=== PATIENT | male | born 1965 | race Caucasian/White ===

== ENCOUNTER 2019-06-03 20:37 | Inpatient (IN) | payer OTHER ==
[2019-06-03] MEDS ORDERED: BISACODYL 10 MG SUPP PR (23:00)
[2019-06-03] MEDS ORDERED: MAGNESIUM HYDROXIDE 30ML CUP PO (23:00)
[2019-06-04 00:16] LABS: ADD UMIC NO; UR ASCORBIC ACID NEGATIVE (NEGATIVE); UR BILIRUBIN (Dip) NEGATIVE (NEGATIVE); UR BLOOD (Dip) NEGATIVE (NEGATIVE); UR CLARITY CLEAR (CLEAR); UR COLOR STRAW (YELLOW); UR GLUCOSE (Dip) NEGATIVE (NEGATIVE); UR KETONES (Dip) NEGATIVE (NEGATIVE); UR LEUKOCYTE ESTERASE (Dip) NEGATIVE Leu/ul (NEGATIVE); UR NITRITE (Dip) NEGATIVE (NEGATIVE); UR SPECIFIC GRAVITY (Dip) 1.003 (1.003-1.030); UR TOTAL PROTEIN (Dip) NEGATIVE (NEGATIVE); UR UROBILINOGEN (Dip) NEGATIVE (NEGATIVE)
[2019-06-04] MEDS ORDERED: ONDANSETRON 4 MG INJ IV (03:30)
[2019-06-04] MEDS ORDERED: NITROGLYCERIN (SL) 0.4 MG TAB SL (03:30)
[2019-06-04 07:26] LABS: ADD MAN DIFF? NO
[2019-06-04 07:35] LABS: BASOPHIL # 0.1 10^3/ul (0.0-0.1); BASOPHILS % 1.2 % (0.0-2.0); EOSINOPHILS # 0.1 10^3/ul (0.0-0.5); EOSINOPHILS % 1.6 % (0.0-7.0); HEMATOCRIT 43.5 % (42.0-52.0); LYMPHOCYTES # 1.4 10^3/ul (0.8-2.9); MEAN CORPUSCULAR HEMOGLOBIN 32.7 pg (29.0-33.0); MEAN CORPUSCULAR HGB CONC 34.5 g/dl (32.0-37.0); MEAN CORPUSCULAR VOLUME 94.8 fl (82.0-101.0); MEAN PLATELET VOLUME 10.7 fl (7.4-10.4); MONOCYTE # 0.8 10^3/ul (0.3-0.9); MONOCYTES % 10.6 % (0.0-11.0); NEUTROPHIL # 5.2 10^3/ul (1.6-7.5); NEUTROPHILS % 68.2 % (39.0-77.0); PLATELET COUNT 246 10^3/UL (140-415); RED BLOOD COUNT 4.59 10^6/ul (4.70-6.10); RED CELL DISTRIBUTION WIDTH 11.6 % (11.5-14.5)
[2019-06-04 07:35] LABS: WHITE BLOOD COUNT 7.6 10^3/ul (4.8-10.8)
[2019-06-04 08:06] LABS: ALANINE AMINOTRANSFERASE 68 IU/L (13-69); ALBUMIN 3.9 g/dl (3.3-4.9); ALBUMIN/GLOBULIN RATIO 1.85; ALKALINE PHOSPHATASE 88 IU/L (42-121); ANION GAP 8 (5-13); ASPARTATE AMINO TRANSFERASE 66 IU/L (15-46); BILIRUBIN,INDIRECT 1.2 mg/dl (0-1.1); BILIRUBIN,TOTAL 1.2 mg/dl (0.2-1.3); BLOOD UREA NITROGEN 17 mg/dl (7-20); CALCIUM 9.5 mg/dl (8.4-10.2); CARBON DIOXIDE 29 mmol/L (21-31); CHLORIDE 100 mmol/L (97-110); CREATININE 0.87 mg/dl (0.61-1.24); Estimated GFR > 60 mL/min (>60); GLUCOSE 93 mg/dl (70-220); POTASSIUM 4.2 mmol/L (3.5-5.1); SODIUM 137 mmol/L (135-144)
[2019-06-04] MEDS: ATORVASTATIN 80 MG TAB PO (08:07)
[2019-06-04] MEDS: AL HYDROX/MG HYDROX/SIMETH 30 ML CUP PO ×4 (08:07→21:27)
[2019-06-04] MEDS: HYDROCODONE/APAP (5/325) TAB PO (08:08)
[2019-06-04] MEDS: ASPIRIN (EC) 81 MG TAB PO (08:08)
[2019-06-04] MEDS: FLUOXETINE 20 MG CAP PO (08:08)
[2019-06-04] MEDS: DOCUSATE SODIUM 100 MG CAP PO ×2 (08:08→21:27)
[2019-06-04] MEDS: LOSARTAN 50 MG TAB PO (08:11)
[2019-06-04] MEDS: NICOTINE (14 MG/24 HR) PATCH TRANSDERM (08:12)
[2019-06-04] MEDS: POLYETHYLENE GLYCOL 17 GM PACKET PO (08:12)
[2019-06-04] MEDS: AMLODIPINE 5 MG TAB PO (08:13)
[2019-06-04] MEDS: FAMOTIDINE 20 MG TAB PO (21:27)
[2019-06-04] MEDS: SENNA TAB PO (21:28)
[2019-06-05] MEDS: AL HYDROX/MG HYDROX/SIMETH 30 ML CUP PO ×4 (07:35→20:24)
[2019-06-05] MEDS: FLUOXETINE 20 MG CAP PO (08:19)
[2019-06-05] MEDS: FAMOTIDINE 20 MG TAB PO ×2 (08:19→20:24)
[2019-06-05] MEDS: DOCUSATE SODIUM 100 MG CAP PO ×2 (08:20→20:26)
[2019-06-05] MEDS: ATORVASTATIN 80 MG TAB PO (08:20)
[2019-06-05] MEDS: LOSARTAN 50 MG TAB PO (08:20)
[2019-06-05] MEDS: ASPIRIN (EC) 81 MG TAB PO (08:20)
[2019-06-05] MEDS: POLYETHYLENE GLYCOL 17 GM PACKET PO (08:21)
[2019-06-05] MEDS: AMLODIPINE 5 MG TAB PO (08:21)
[2019-06-05] MEDS: NICOTINE (14 MG/24 HR) PATCH TRANSDERM (08:23)
[2019-06-05] MEDS: LACTULOSE 30ML CUP PO (08:23)
[2019-06-05] MEDS: SENNA TAB PO (20:26)
[2019-06-06] MEDS: POLYETHYLENE GLYCOL 17 GM PACKET PO (09:09)
[2019-06-06] MEDS: AL HYDROX/MG HYDROX/SIMETH 30 ML CUP PO ×4 (09:09→21:13)
[2019-06-06] MEDS: AMLODIPINE 5 MG TAB PO (09:10)
[2019-06-06] MEDS: FAMOTIDINE 20 MG TAB PO ×2 (09:10→21:13)
[2019-06-06] MEDS: FLUOXETINE 20 MG CAP PO (09:10)
[2019-06-06] MEDS: LOSARTAN 50 MG TAB PO (09:10)
[2019-06-06] MEDS: ASPIRIN (EC) 81 MG TAB PO (09:10)
[2019-06-06] MEDS: DOCUSATE SODIUM 100 MG CAP PO ×2 (09:11→21:00)
[2019-06-06] MEDS: ATORVASTATIN 80 MG TAB PO (09:11)
[2019-06-06] MEDS: NICOTINE (14 MG/24 HR) PATCH TRANSDERM (09:12)
[2019-06-06] MEDS: SENNA TAB PO (21:00)
[2019-06-06] MEDS: CIPROFLOXACIN 500 MG TAB PO (23:53)
[2019-06-07] MEDS: CIPROFLOXACIN 500 MG TAB PO (06:16)
[2019-06-07] MEDS: AL HYDROX/MG HYDROX/SIMETH 30 ML CUP PO ×4 (08:04→20:09)
[2019-06-07] MEDS: LOSARTAN 50 MG TAB PO (08:07)
[2019-06-07] MEDS: AMLODIPINE 5 MG TAB PO (08:08)
[2019-06-07] MEDS: DOCUSATE SODIUM 100 MG CAP PO ×2 (08:10→20:09)
[2019-06-07] MEDS: ASPIRIN (EC) 81 MG TAB PO (08:16)
[2019-06-07] MEDS: ATORVASTATIN 80 MG TAB PO (08:16)
[2019-06-07] MEDS: FAMOTIDINE 20 MG TAB PO ×2 (08:16→20:09)
[2019-06-07] MEDS: FLUOXETINE 20 MG CAP PO (08:16)
[2019-06-07] MEDS: NICOTINE (14 MG/24 HR) PATCH TRANSDERM (08:17)
[2019-06-07] MEDS ORDERED: POLYETHYLENE GLYCOL 17 GM PACKET PO (09:00)
[2019-06-07] MEDS: ACETAMINOPHEN 325 MG TAB PO (09:33)
[2019-06-07] MEDS ORDERED: PIPER-TAZO 3.375 GM IV (PMX) 100 ML IVPB (12:30)
[2019-06-07 12:34] LABS: LACTIC ACID 1.4 mmol/L (0.5-2.0)
[2019-06-07] MEDS: TOLTERODINE (SR) 4 MG CAP PO (12:51)
[2019-06-07] MEDS: CEFTRIAXONE 1 GM/NS 50 ML IVPB (13:06)
[2019-06-07 16:05] LABS: ADD MAN DIFF? NO
[2019-06-07 16:08] LABS: WHITE BLOOD COUNT 15.2 10^3/ul (4.8-10.8)
[2019-06-07 16:09] LABS: BASOPHIL # 0.1 10^3/ul (0.0-0.1); BASOPHILS % 0.5 % (0.0-2.0); EOSINOPHILS % 0.1 % (0.0-7.0); HEMATOCRIT 40.3 % (42.0-52.0); LYMPHOCYTES # 0.8 10^3/ul (0.8-2.9); LYMPHOCYTES % 5.3 % (15.0-51.0); MEAN CORPUSCULAR HEMOGLOBIN 32.5 pg (29.0-33.0); MEAN CORPUSCULAR HGB CONC 34.7 g/dl (32.0-37.0); MEAN CORPUSCULAR VOLUME 93.5 fl (82.0-101.0); MEAN PLATELET VOLUME 11.1 fl (7.4-10.4); MONOCYTE # 0.9 10^3/ul (0.3-0.9); NEUTROPHIL # 13.4 10^3/ul (1.6-7.5); NEUTROPHILS % 87.6 % (39.0-77.0); PLATELET COUNT 219 10^3/UL (140-415); RED BLOOD COUNT 4.31 10^6/ul (4.70-6.10); RED CELL DISTRIBUTION WIDTH 11.5 % (11.5-14.5)
[2019-06-07] MEDS: SENNA TAB PO (20:09)
[2019-06-08 06:29] LABS: ADD MAN DIFF? NO
[2019-06-08 06:33] LABS: BASOPHIL # 0.1 10^3/ul (0.0-0.1); BASOPHILS % 0.7 % (0.0-2.0); EOSINOPHILS # 0.1 10^3/ul (0.0-0.5); EOSINOPHILS % 0.8 % (0.0-7.0); HEMATOCRIT 39.8 % (42.0-52.0); HEMOGLOBIN 13.7 g/dl (14.0-18.0); LYMPHOCYTES # 0.8 10^3/ul (0.8-2.9); LYMPHOCYTES % 7.1 % (15.0-51.0); MEAN CORPUSCULAR HEMOGLOBIN 32.6 pg (29.0-33.0); MEAN CORPUSCULAR HGB CONC 34.4 g/dl (32.0-37.0); MEAN CORPUSCULAR VOLUME 94.8 fl (82.0-101.0); MEAN PLATELET VOLUME 10.3 fl (7.4-10.4); MONOCYTE # 0.8 10^3/ul (0.3-0.9); MONOCYTES % 6.7 % (0.0-11.0); NEUTROPHIL # 9.9 10^3/ul (1.6-7.5); NEUTROPHILS % 84.2 % (39.0-77.0); PLATELET COUNT 203 10^3/UL (140-415); RED CELL DISTRIBUTION WIDTH 11.5 % (11.5-14.5)
[2019-06-08 06:33] LABS: WHITE BLOOD COUNT 11.8 10^3/ul (4.8-10.8)
[2019-06-08 07:01] LABS: ALANINE AMINOTRANSFERASE 393 IU/L (13-69); ALBUMIN 3.3 g/dl (3.3-4.9); ALBUMIN/GLOBULIN RATIO 1.17; ALKALINE PHOSPHATASE 146 IU/L (42-121); ANION GAP 7 (5-13); ASPARTATE AMINO TRANSFERASE 228 IU/L (15-46); BLOOD UREA NITROGEN 11 mg/dl (7-20); CALCIUM 9.1 mg/dl (8.4-10.2); CARBON DIOXIDE 32 mmol/L (21-31); CHLORIDE 97 mmol/L (97-110); CREATININE 0.78 mg/dl (0.61-1.24); Estimated GFR > 60 mL/min (>60); GLUCOSE 127 mg/dl (70-220); POTASSIUM 3.9 mmol/L (3.5-5.1); SODIUM 136 mmol/L (135-144); TOTAL PROTEIN 6.1 g/dl (6.1-8.1)
[2019-06-08] MEDS: AL HYDROX/MG HYDROX/SIMETH 30 ML CUP PO ×4 (08:22→21:02)
[2019-06-08] MEDS: DOCUSATE SODIUM 100 MG CAP PO ×2 (09:00→21:00)
[2019-06-08] MEDS: LOSARTAN 50 MG TAB PO (09:02)
[2019-06-08] MEDS: ASPIRIN (EC) 81 MG TAB PO (09:02)
[2019-06-08] MEDS: TOLTERODINE (SR) 4 MG CAP PO (09:02)
[2019-06-08] MEDS: AMLODIPINE 5 MG TAB PO (09:02)
[2019-06-08] MEDS: ATORVASTATIN 80 MG TAB PO (09:03)
[2019-06-08] MEDS: FLUOXETINE 20 MG CAP PO (09:03)
[2019-06-08] MEDS: FAMOTIDINE 20 MG TAB PO ×2 (09:03→21:02)
[2019-06-08] MEDS: NICOTINE (14 MG/24 HR) PATCH TRANSDERM (09:04)
[2019-06-08] MEDS: CEFTRIAXONE 1 GM/NS 50 ML IVPB (12:51)
[2019-06-08] MEDS: SENNA TAB PO (21:00)
[2019-06-09] MEDS: AL HYDROX/MG HYDROX/SIMETH 30 ML CUP PO ×4 (06:48→21:00)
[2019-06-09 07:32] LABS: ADD MAN DIFF? NO
[2019-06-09 07:48] LABS: WHITE BLOOD COUNT 9.5 10^3/ul (4.8-10.8)
[2019-06-09 07:48] LABS: BASOPHIL # 0.1 10^3/ul (0.0-0.1); BASOPHILS % 0.7 % (0.0-2.0); EOSINOPHILS # 0.1 10^3/ul (0.0-0.5); EOSINOPHILS % 1.3 % (0.0-7.0); HEMATOCRIT 40.9 % (42.0-52.0); HEMOGLOBIN 13.7 g/dl (14.0-18.0); LYMPHOCYTES # 1.1 10^3/ul (0.8-2.9); LYMPHOCYTES % 11.1 % (15.0-51.0); MEAN CORPUSCULAR HEMOGLOBIN 31.6 pg (29.0-33.0); MEAN CORPUSCULAR HGB CONC 33.5 g/dl (32.0-37.0); MEAN CORPUSCULAR VOLUME 94.2 fl (82.0-101.0); MEAN PLATELET VOLUME 10.8 fl (7.4-10.4); MONOCYTES % 10.2 % (0.0-11.0); NEUTROPHIL # 7.2 10^3/ul (1.6-7.5); NEUTROPHILS % 76.3 % (39.0-77.0); PLATELET COUNT 234 10^3/UL (140-415); RED BLOOD COUNT 4.34 10^6/ul (4.70-6.10); RED CELL DISTRIBUTION WIDTH 11.6 % (11.5-14.5)
[2019-06-09 08:05] LABS: ANION GAP 8 (5-13); BLOOD UREA NITROGEN 11 mg/dl (7-20); CALCIUM 9.3 mg/dl (8.4-10.2); CARBON DIOXIDE 28 mmol/L (21-31); CHLORIDE 100 mmol/L (97-110); CREATININE 0.76 mg/dl (0.61-1.24); Estimated GFR > 60 mL/min (>60); GLUCOSE 91 mg/dl (70-220); POTASSIUM 3.8 mmol/L (3.5-5.1); SODIUM 136 mmol/L (135-144)
[2019-06-09] MEDS: FLUOXETINE 20 MG CAP PO (08:40)
[2019-06-09] MEDS: NICOTINE (14 MG/24 HR) PATCH TRANSDERM (08:40)
[2019-06-09] MEDS: TOLTERODINE (SR) 4 MG CAP PO (08:40)
[2019-06-09] MEDS: FAMOTIDINE 20 MG TAB PO ×2 (08:40→20:35)
[2019-06-09] MEDS: AMLODIPINE 5 MG TAB PO (08:41)
[2019-06-09] MEDS: ASPIRIN (EC) 81 MG TAB PO (08:41)
[2019-06-09] MEDS: LOSARTAN 50 MG TAB PO (08:41)
[2019-06-09] MEDS: DOCUSATE SODIUM 100 MG CAP PO ×2 (08:42→21:00)
[2019-06-09 09:06] LABS: PROSTATE SPECIFIC ANTIGEN 30.1 ng/ml (0.0-4.0)
[2019-06-09] MEDS: CEFTRIAXONE 1 GM/NS 50 ML IVPB (12:49)
[2019-06-09] MEDS: SENNA TAB PO (21:00)
[2019-06-10] MEDS: AL HYDROX/MG HYDROX/SIMETH 30 ML CUP PO ×4 (07:05→20:22)
[2019-06-10 08:06] LABS: ALANINE AMINOTRANSFERASE 173 IU/L (13-69); ALBUMIN 3.2 g/dl (3.3-4.9); ALKALINE PHOSPHATASE 118 IU/L (42-121); ASPARTATE AMINO TRANSFERASE 47 IU/L (15-46); BILIRUBIN,INDIRECT 0.6 mg/dl (0-1.1); BILIRUBIN,TOTAL 0.6 mg/dl (0.2-1.3); TOTAL PROTEIN 6.1 g/dl (6.1-8.1)
[2019-06-10] MEDS: DOCUSATE SODIUM 100 MG CAP PO ×2 (08:33→20:22)
[2019-06-10] MEDS: LOSARTAN 50 MG TAB PO (08:51)
[2019-06-10] MEDS: FLUOXETINE 20 MG CAP PO (08:51)
[2019-06-10] MEDS: TOLTERODINE (SR) 4 MG CAP PO (08:51)
[2019-06-10] MEDS: ASPIRIN (EC) 81 MG TAB PO (08:52)
[2019-06-10] MEDS: FAMOTIDINE 20 MG TAB PO ×2 (08:52→20:21)
[2019-06-10] MEDS: MULTIVITAMINS THERAPEUTIC TAB PO (08:52)
[2019-06-10] MEDS: AMLODIPINE 5 MG TAB PO (08:52)
[2019-06-10] MEDS: NICOTINE (14 MG/24 HR) PATCH TRANSDERM (08:52)
[2019-06-10] MEDS: CEFTRIAXONE 1 GM/NS 50 ML IVPB (12:33)
[2019-06-10] MEDS: SENNA TAB PO (20:22)
[2019-06-11 06:05] LABS: ALANINE AMINOTRANSFERASE 130 IU/L (13-69); ALBUMIN 3.7 g/dl (3.3-4.9); ALKALINE PHOSPHATASE 103 IU/L (42-121); ASPARTATE AMINO TRANSFERASE 36 IU/L (15-46); BILIRUBIN,INDIRECT 0.4 mg/dl (0-1.1); BILIRUBIN,TOTAL 0.4 mg/dl (0.2-1.3); TOTAL PROTEIN 6.4 g/dl (6.1-8.1)
[2019-06-11] MEDS: AL HYDROX/MG HYDROX/SIMETH 30 ML CUP PO ×4 (07:05→20:12)
[2019-06-11] MEDS: NICOTINE (14 MG/24 HR) PATCH TRANSDERM (08:46)
[2019-06-11] MEDS: MULTIVITAMINS THERAPEUTIC TAB PO (08:47)
[2019-06-11] MEDS: AMLODIPINE 5 MG TAB PO (08:47)
[2019-06-11] MEDS: ASPIRIN (EC) 81 MG TAB PO (08:47)
[2019-06-11] MEDS: FAMOTIDINE 20 MG TAB PO ×2 (08:47→20:03)
[2019-06-11] MEDS: FLUOXETINE 20 MG CAP PO (08:47)
[2019-06-11] MEDS: DOCUSATE SODIUM 100 MG CAP PO ×2 (08:48→20:12)
[2019-06-11] MEDS: LOSARTAN 50 MG TAB PO (08:48)
[2019-06-11] MEDS: CEFTRIAXONE 1 GM/NS 50 ML IVPB (12:36)
[2019-06-11] MEDS: ATORVASTATIN 10 MG TAB PO (20:03)
[2019-06-11] MEDS: SENNA TAB PO (20:12)
[2019-06-12] MEDS: AL HYDROX/MG HYDROX/SIMETH 30 ML CUP PO ×4 (05:56→20:36)
[2019-06-12] MEDS: NICOTINE (14 MG/24 HR) PATCH TRANSDERM (08:13)
[2019-06-12] MEDS: AMLODIPINE 5 MG TAB PO (08:13)
[2019-06-12] MEDS: MULTIVITAMINS THERAPEUTIC TAB PO (08:14)
[2019-06-12] MEDS: FLUOXETINE 20 MG CAP PO (08:14)
[2019-06-12] MEDS: FAMOTIDINE 20 MG TAB PO ×2 (08:14→20:34)
[2019-06-12] MEDS: ASPIRIN (EC) 81 MG TAB PO (08:14)
[2019-06-12] MEDS: DOCUSATE SODIUM 100 MG CAP PO ×2 (08:15→20:36)
[2019-06-12] MEDS: LOSARTAN 50 MG TAB PO (08:17)
[2019-06-12] MEDS: CEFTRIAXONE 1 GM/NS 50 ML IVPB (13:57)
[2019-06-12] MEDS: ATORVASTATIN 10 MG TAB PO (20:34)
[2019-06-12] MEDS: SENNA TAB PO (20:36)
[2019-06-13] MEDS: AL HYDROX/MG HYDROX/SIMETH 30 ML CUP PO ×4 (05:36→20:17)
[2019-06-13 07:43] LABS: ALANINE AMINOTRANSFERASE 101 IU/L (13-69); ALBUMIN 3.7 g/dl (3.3-4.9); ALBUMIN/GLOBULIN RATIO 1.48; ALKALINE PHOSPHATASE 90 IU/L (42-121); ANION GAP 7 (5-13); ASPARTATE AMINO TRANSFERASE 47 IU/L (15-46); BILIRUBIN,INDIRECT 0.6 mg/dl (0-1.1); BILIRUBIN,TOTAL 0.6 mg/dl (0.2-1.3); BLOOD UREA NITROGEN 10 mg/dl (7-20); CALCIUM 9.5 mg/dl (8.4-10.2); CARBON DIOXIDE 28 mmol/L (21-31); CHLORIDE 102 mmol/L (97-110); CREATININE 0.74 mg/dl (0.61-1.24); Estimated GFR > 60 mL/min (>60); GLUCOSE 98 mg/dl (70-220); SODIUM 137 mmol/L (135-144); TOTAL PROTEIN 6.2 g/dl (6.1-8.1)
[2019-06-13] MEDS: DOCUSATE SODIUM 100 MG CAP PO ×2 (08:35→20:17)
[2019-06-13] MEDS: MULTIVITAMINS THERAPEUTIC TAB PO (09:55)
[2019-06-13] MEDS: NICOTINE (14 MG/24 HR) PATCH TRANSDERM (09:55)
[2019-06-13] MEDS: FAMOTIDINE 20 MG TAB PO ×2 (09:55→20:16)
[2019-06-13] MEDS: FLUOXETINE 20 MG CAP PO (09:55)
[2019-06-13] MEDS: AMLODIPINE 5 MG TAB PO (09:56)
[2019-06-13] MEDS: ASPIRIN (EC) 81 MG TAB PO (09:56)
[2019-06-13] MEDS: LOSARTAN 50 MG TAB PO (09:56)
[2019-06-13] MEDS: CEFTRIAXONE 1 GM/NS 50 ML IVPB (12:51)
[2019-06-13] MEDS: ATORVASTATIN 10 MG TAB PO (20:16)
[2019-06-13] MEDS: SENNA TAB PO (20:17)
[2019-06-14] MEDS: AL HYDROX/MG HYDROX/SIMETH 30 ML CUP PO ×4 (07:05→20:50)
[2019-06-14] MEDS: DOCUSATE SODIUM 100 MG CAP PO ×2 (08:43→20:51)
[2019-06-14] MEDS: ASPIRIN (EC) 81 MG TAB PO (08:50)
[2019-06-14] MEDS: FAMOTIDINE 20 MG TAB PO ×2 (08:50→20:51)
[2019-06-14] MEDS: FLUOXETINE 20 MG CAP PO (08:50)
[2019-06-14] MEDS: LOSARTAN 50 MG TAB PO (08:50)
[2019-06-14] MEDS: AMLODIPINE 5 MG TAB PO (08:51)
[2019-06-14] MEDS: NICOTINE (14 MG/24 HR) PATCH TRANSDERM (08:52)
[2019-06-14] MEDS: MULTIVITAMINS THERAPEUTIC TAB PO (08:55)
[2019-06-14] MEDS: SENNA TAB PO (20:50)
[2019-06-14] MEDS: ATORVASTATIN 10 MG TAB PO (20:50)
[2019-06-15] MEDS: AL HYDROX/MG HYDROX/SIMETH 30 ML CUP PO ×4 (07:05→20:20)
[2019-06-15] MEDS: DOCUSATE SODIUM 100 MG CAP PO ×2 (09:00→20:20)
[2019-06-15] MEDS: AMLODIPINE 5 MG TAB PO ×2 (09:00→13:10)
[2019-06-15] MEDS: LOSARTAN 50 MG TAB PO ×2 (09:00→13:11)
[2019-06-15] MEDS: NICOTINE (14 MG/24 HR) PATCH TRANSDERM (09:19)
[2019-06-15] MEDS: MULTIVITAMINS THERAPEUTIC TAB PO (09:20)
[2019-06-15] MEDS: ASPIRIN (EC) 81 MG TAB PO (09:20)
[2019-06-15] MEDS: FLUOXETINE 20 MG CAP PO (09:21)
[2019-06-15] MEDS: FAMOTIDINE 20 MG TAB PO ×2 (09:21→20:18)
[2019-06-15] MEDS: ATORVASTATIN 10 MG TAB PO (20:18)
[2019-06-15] MEDS: SENNA TAB PO (21:00)
[2019-06-16] MEDS: AL HYDROX/MG HYDROX/SIMETH 30 ML CUP PO ×2 (07:05→11:30)
[2019-06-16] MEDS: NICOTINE (14 MG/24 HR) PATCH TRANSDERM (08:31)
[2019-06-16] MEDS: LOSARTAN 50 MG TAB PO (08:32)
[2019-06-16] MEDS: ASPIRIN (EC) 81 MG TAB PO (08:32)
[2019-06-16] MEDS: FAMOTIDINE 20 MG TAB PO ×2 (08:32→20:30)
[2019-06-16] MEDS: FLUOXETINE 20 MG CAP PO (08:33)
[2019-06-16] MEDS: AMLODIPINE 5 MG TAB PO (08:33)
[2019-06-16] MEDS: MULTIVITAMINS THERAPEUTIC TAB PO (08:33)
[2019-06-16] MEDS: DOCUSATE SODIUM 100 MG CAP PO ×2 (08:33→20:32)
[2019-06-16] MEDS ORDERED: AL HYDROX/MG HYDROX/SIMETH 30 ML CUP PO (14:00)
[2019-06-16] MEDS: ATORVASTATIN 10 MG TAB PO (20:30)
[2019-06-16] MEDS: SENNA TAB PO (20:32)
[2019-06-17] MEDS: DOCUSATE SODIUM 100 MG CAP PO ×2 (08:22→20:43)
[2019-06-17] MEDS: ASPIRIN (EC) 81 MG TAB PO (09:48)
[2019-06-17] MEDS: FLUOXETINE 20 MG CAP PO (09:48)
[2019-06-17] MEDS: AMLODIPINE 5 MG TAB PO (09:48)
[2019-06-17] MEDS: FAMOTIDINE 20 MG TAB PO ×2 (09:48→20:42)
[2019-06-17] MEDS: MULTIVITAMINS THERAPEUTIC TAB PO (09:48)
[2019-06-17] MEDS: LOSARTAN 50 MG TAB PO (09:49)
[2019-06-17] MEDS: NICOTINE (14 MG/24 HR) PATCH TRANSDERM (09:51)
[2019-06-17] MEDS: ATORVASTATIN 10 MG TAB PO (20:40)
[2019-06-17] MEDS: SENNA TAB PO (20:43)
[2019-06-18 06:32] LABS: ADD MAN DIFF? NO
[2019-06-18 06:39] LABS: WHITE BLOOD COUNT 7.3 10^3/ul (4.8-10.8)
[2019-06-18 06:39] LABS: BASOPHIL # 0.1 10^3/ul (0.0-0.1); BASOPHILS % 0.8 % (0.0-2.0); EOSINOPHILS # 0.2 10^3/ul (0.0-0.5); EOSINOPHILS % 2.2 % (0.0-7.0); HEMATOCRIT 41.2 % (42.0-52.0); HEMOGLOBIN 13.8 g/dl (14.0-18.0); LYMPHOCYTES # 1.3 10^3/ul (0.8-2.9); LYMPHOCYTES % 17.5 % (15.0-51.0); MEAN CORPUSCULAR HEMOGLOBIN 32.2 pg (29.0-33.0); MEAN CORPUSCULAR HGB CONC 33.5 g/dl (32.0-37.0); MEAN PLATELET VOLUME 9.5 fl (7.4-10.4); MONOCYTE # 0.5 10^3/ul (0.3-0.9); MONOCYTES % 6.5 % (0.0-11.0); NEUTROPHIL # 5.3 10^3/ul (1.6-7.5); NEUTROPHILS % 72.3 % (39.0-77.0); PLATELET COUNT 308 10^3/UL (140-415); RED BLOOD COUNT 4.29 10^6/ul (4.70-6.10); RED CELL DISTRIBUTION WIDTH 11.9 % (11.5-14.5)
[2019-06-18 07:08] LABS: PHOSPHORUS 3.9 mg/dl (2.5-4.9)
[2019-06-18 07:08] LABS: MAGNESIUM 1.9 mg/dl (1.7-2.5)
[2019-06-18 07:18] LABS: ALANINE AMINOTRANSFERASE 68 IU/L (13-69); ALBUMIN 3.4 g/dl (3.3-4.9); ALBUMIN/GLOBULIN RATIO 1.54; ALKALINE PHOSPHATASE 76 IU/L (42-121); ANION GAP 7 (5-13); ASPARTATE AMINO TRANSFERASE 29 IU/L (15-46); BILIRUBIN,INDIRECT 0.8 mg/dl (0-1.1); BILIRUBIN,TOTAL 0.8 mg/dl (0.2-1.3); BLOOD UREA NITROGEN 11 mg/dl (7-20); CALCIUM 9.5 mg/dl (8.4-10.2); CARBON DIOXIDE 29 mmol/L (21-31); CHLORIDE 100 mmol/L (97-110); CREATININE 0.82 mg/dl (0.61-1.24); Estimated GFR > 60 mL/min (>60); GLUCOSE 89 mg/dl (70-220); POTASSIUM 4.7 mmol/L (3.5-5.1); SODIUM 136 mmol/L (135-144); TOTAL PROTEIN 5.6 g/dl (6.1-8.1)
[2019-06-18] MEDS: DOCUSATE SODIUM 100 MG CAP PO (08:20)
[2019-06-18] MEDS: LOSARTAN 50 MG TAB PO (09:00)
[2019-06-18] MEDS: NICOTINE (14 MG/24 HR) PATCH TRANSDERM (09:11)
[2019-06-18] MEDS: FAMOTIDINE 20 MG TAB PO ×2 (09:11→20:27)
[2019-06-18] MEDS: FLUOXETINE 20 MG CAP PO (09:11)
[2019-06-18] MEDS: MULTIVITAMINS THERAPEUTIC TAB PO (09:11)
[2019-06-18] MEDS: ASPIRIN (EC) 81 MG TAB PO (09:11)
[2019-06-18] MEDS ORDERED: DOCUSATE SODIUM 100 MG CAP PO (09:30)
[2019-06-18] MEDS ORDERED: SENNA TAB PO (09:30)
[2019-06-18] MEDS: ATORVASTATIN 10 MG TAB PO (20:27)
[2019-06-19] MEDS: FAMOTIDINE 20 MG TAB PO (08:36)
[2019-06-19] MEDS: MULTIVITAMINS THERAPEUTIC TAB PO (08:36)
[2019-06-19] MEDS: FLUOXETINE 20 MG CAP PO (08:36)
[2019-06-19] MEDS: ASPIRIN (EC) 81 MG TAB PO (08:36)
[2019-06-19] MEDS: NICOTINE (14 MG/24 HR) PATCH TRANSDERM (08:36)
[2019-06-19] MEDS: LOSARTAN 50 MG TAB PO (08:37)
== END 2019-06-19 18:09 | disposition home health service (06) | DRG 57 ==
LOC: VRC 20:37
DX: I69.854 Hemiplegia and hemiparesis following other cerebrovascular disease affecting left non-dominant side (principal); N39.0 Urinary tract infection, site not specified; F17.200 Nicotine dependence, unspecified, uncomplicated; I10 Essential (primary) hypertension; I65.02 Occlusion and stenosis of left vertebral artery; F10.20 Alcohol dependence, uncomplicated; Z79.82 Long term (current) use of aspirin; E78.5 Hyperlipidemia, unspecified; Z74.09 Other reduced mobility; Z91.19 Patient's noncompliance with other medical treatment and regimen; E80.7 Disorder of bilirubin metabolism, unspecified; B96.20 Unspecified Escherichia coli [E. coli] as the cause of diseases classified elsewhere; Z72.0 Tobacco use; Z72.89 Other problems related to lifestyle; R50.9 Fever, unspecified; B96.81 Helicobacter pylori [H. pylori] as the cause of diseases classified elsewhere; R97.20 Elevated prostate specific antigen [PSA]; R33.9 Retention of urine, unspecified
CPT/HCPCS: 71045; 76705; 76856; 80048; 80053; 80076; 81003; 83605; 83735; 84100; 84153; 84154; 85025; 87040-91; 87081; 87086; 92507; 92523; 97110; 97112; 97116; 97150; 97163; 97167; 97530; 97535; 97542